=== PATIENT | female | born 1985 | race Caucasian/White ===

== ENCOUNTER 2025-01-20 05:52 | Day surgery (SDC) | payer BC ==
[2025-01-20] MEDS ORDERED: Xylocaine 1% Vial 30 ML PF IJ ONE (06:15)
[2025-01-20] MEDS ORDERED: Marcaine Mpf 0.5% Vial 30 Ml ONE (06:15)
[2025-01-20 06:18] LABS: HCG URINE TEST NEGATIVE (NEGATIVE)
[2025-01-20] MEDS ORDERED: Lactated Ringers 1,000 ML IV ONE (06:21)
[2025-01-20] MEDS ORDERED: CEFAZOLIN SODIUM ONE (06:22)
[2025-01-20] MEDS: Lactated Ringers 1,000 ML IV SCH (06:28)
[2025-01-20 06:42] VITALS: RESP 16
[2025-01-20 06:44] LABS: Hematocrit 36.6 % (34.1-44.9); Hemoglobin 11.9 g/dL (11.2-15.7); Mean Corpuscular Hemoglobin 28.7 pg (25.6-32.2); Mean Corpuscular Hgb Concent. 32.5 g/dL (32.2-35.5); Platelet Count 273 x10^3/uL (182-369); Red Blood Count 4.14 x10^6/uL (3.93-5.22); White Blood Count 7.3 x10^3/uL (3.98-10.04)
[2025-01-20 07:00] LABS: Calcium 9.2 mg/dL (8.4-10.2); Carbon Dioxide 27.0 mmol/L (22-30); Creatinine 1 0.76 mg/dL (0.52-1.04); EST GLOMERULAR FILTRATION RATE 102.8 ML/MIN; Glucose 100.0 mg/dL (74-106); Potassium 4.1 mmol/L (3.5-5.1); SGOT/AST 21.0 U/L (14-36); SGPT/ALT 17.0 U/L (0-35); Total Protein 7.1 g/dL (6.3-8.2)
[2025-01-20] MEDS ORDERED: propofoL IV ONE (07:13)
[2025-01-20] MEDS ORDERED: ROCURONIUM BROMIDE IV ONE (07:14)
[2025-01-20] MEDS ORDERED: Zofran 4 MG/2 ML VIAL ONE (07:24)
[2025-01-20] MEDS ORDERED: BRIDION 200MG/2ML IV ONE (08:25)
[2025-01-20] MEDS ORDERED: SUBLIMAZE 100 MCG/2 ML ONE (08:58)
[2025-01-20] MEDS ORDERED: DILAUDID 0.5 MG/0.5 ML SYRINGE ONE ×2 (08:59→09:36)
[2025-01-20 10:21] VITALS: BP 128/68; PULSE 78; TEMP 97.8; O2SAT 97
--- NOTE | 2025-01-21 09:41 | OP ---
SURGERY DATE/TIME: 01/20/2025 [id number] PREOPERATIVE DIAGNOSES: 1) Left tarsal tunnel. 2) Left medial plantar nerve compression. 3) Left lateral plantar nerve compression injury. 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 5) Plantar fasciitis left foot. 6) Left foot pain. POSTOPERATIVE DIAGNOSES: 1) Left tarsal tunnel. 2) Left medial plantar nerve compression. 3) Left lateral plantar nerve compression injury. 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 5) Plantar fasciitis left foot. 6) Left foot pain. PROCEDURES: 1) Left tarsal tunnel release. 2) Left lateral branch of the posterior tibial nerve release with Alston's nerve release. 3) Medial plantar nerve release. 4) Partial plantar fasciotomy left foot. SURGEON: Alok Marquez DPM ANESTHESIA: General. HEMOSTASIS: Thigh tourniquet set to 300 mmHg for a total of 45 total tourniquet minutes. ESTIMATED BLOOD LOSS: Approximately 10 mL. MATERIALS: 4-0 Monocryl, 3-0 nylon. INJECTABLES: See Anesthesia report for details. INDICATIONS: The patient is a very pleasant 39-year-old female known to my service for a history of tarsal tunnel and plantar fasciitis to the left lower extremity. She was treated conservatively initially with stretching exercises, night splints, injections, to which she responded favorably initially. However, this did recur and over the course of several months, it was made very apparent that the patient's pain was musculoskeletal in nature as well as neurological. From that standpoint, we did obtain an MRI that showed some significant thickening of the plantar fascia and an EMG which demonstrated a left tarsal tunnel syndrome, which is consistent with the lateral plantar nerve entrapment. From that standpoint, we have discussed the options as far as conservative and surgical intervention. Given she has been going forward with a 6-month history of continue pain and recurrence of that despite failed conservative modalities, she does want to proceed with surgical intervention at this time. Patient was made aware of all risks, complications, and benefits of surgical intervention at this time, but not limited to, infection, hematoma, seroma, possibility of delaying wound healing, non-wound healing, possibility of failure of surgical intervention, possibility of neurovascular damage, and possible need for further surgical intervention at a later date. No guarantees were provided as to the outcome of surgical intervention. Patient was allowed plenty of time to ask questions which were answered to her apparent satisfaction. It is at this time we decided to proceed. DESCRIPTION OF PROCEDURE AND FINDINGS: Patient was brought into the operating room, placed on the operating room table in the supine position. At this time, general anesthesia was administered until the patient was adequately sedated. Once the patient was sedated, the a well-padded thigh tourniquet was applied. The tourniquet was set to 300 mmHg. The left lower extremity was prepped and draped in the typical sterile fashion and lowered onto the surgical field. Attention was directed to the left ankle where landmarks were identified at the medial aspect of the ankle, including the medial malleolus, the calcaneus, and the Achilles tendon. Skin marker was utilized to identify the structures and project the anticipated trajectory of the posterior tibial nerve as well as its distal branches, including the medial plantar, lateral plantar, and Alston's nerve. From that standpoint, a linear incision was made. Of note, we did use a 2-incision approach for postoperative comfort and early weightbearing. The first incision was made just 1 cm posterior to the tibial border. This was carried through the skin to the adipose layer where blunt dissection was carried down to the flexor retinaculum. Any neurovascular structures that were encountered were either retracted or cauterized, and retracted out of the field. The laciniate ligament was then dissected and identified. Briefly, after dissected the flexor retinaculum, the greater saphenous vein was identified and this was traced proximally until the posterior tibial nerve was identified. [place] were utilized to identify the nerve and carry this distally along the nerve's path. It was noted at this time that there were tortuous varicose veins surrounding the posterior tibial nerve at this level and there were disruptions of the [place]. The tributaries on the greater saphenous vein were hand tied and cauterized in this location, leaving the greater saphenous intact. However, the tributaries cauterized and hand ties so as to prevent any further compression at this level. Once the nerve was identified to be free, a [place] was introduced on the deep surface of the flexor retinaculum and utilizing a pair of dissection scissors and a 15 blade, careful resection of the laciniate ligament was carried. A separate incision was made following the course of the posterior tibial nerve to where it branched into three separate nerves. The lateral plantar nerve first branched off with very early Alston's nerve diving off, supplying the area surrounding the abductor hallucis. Once this was identified, it was traced down into the abductor hallucis fascia which was released circumferentially at this point demonstrating clear release of the Alston's nerve. Once this was followed through to the lateral plantar nerve, there was some constricture at the level of the plantar septum. This was released utilizing a pair of dissection scissors and protecting the nerve by pushing this plantarly and resecting the septum. Just superior to this structure was the branch of the medial plantar nerve which once again, once we resected the septum between these two nerves, showed free mobilization of the medial plantar, lateral plantar, and Alston's nerve. The incision was carried just slightly deeper into the instep which careful displacement of the fat pad demonstrated the plantar fascia where the plantar aspect of the abductor hallucis was resected and then the tissue of the plantar fascia that blended with this tissue was resected. Approximately one half of the plantar fascia was resected so as not to destabilize the lateral aspect of the forefoot. Following this, I was able to probe all of the sites where the nerves were released which was able to easily accommodate my pinky finger and the vein was identified to be decompressed as well as the nerve at the level of the ankle and descending into the plantar arch. Copious amounts of sterile saline were utilized to flush the surgical site. Simple interrupted, buried-type sutures were utilized for subcutaneous closure and then 3-0 nylon was utilized in a horizontal Mattress-type fashion to coapt the skin edges in an everted-type fashion. A dressing consisting of Betadine, Adaptic, 4 x 4, Kerlix, ABD, and Bong was applied to the patient's left lower extremity. Patient was then reversed from anesthesia and returned to the postoperative anesthesia care unit with vital signs stable and vascular status intact. Patient handled the anesthesia as well as the procedure without significant complication. Postoperative orders as indicated in the patient's discharge chart.
== END 2025-01-20 10:36 | disposition home or self-care (01) ==
LOC: SDC 05:52
PROVIDERS: ATTEND Podiatrist Foot & Ankle Surgery
DX: G57.52 Tarsal tunnel syndrome, left lower limb (principal); S94 Injury of nerves at ankle and foot level; G57.82 Other specified mononeuropathies of left lower limb; M72.2 Plantar fascial fibromatosis; M79.672 Pain in left foot